=== PATIENT | female | born 1980 | race Caucasian/White ===

== ENCOUNTER 2022-03-09 21:35 | Emergency (ER) | payer SELFPAY ==
[2022-03-09 22:44] LABS: HEMOGLOBIN 14.5 gm/dl (12.3-15.3); RED BLOOD COUNT 4.72 M/UL (4.00-5.10); WHITE BLOOD COUNT 9.2 K/UL (4.5-11.0)
[2022-03-09 23:06] LABS: BUN/CREATININE RATIO 8 (0-10)
[2022-03-10] MEDS ORDERED: PROAIR HFA8.5 GM INH (01:03)
[2022-03-10] MEDS ORDERED: MUCINEX DM ER1 EACH PO (01:03)
== END 2022-03-10 01:15 | disposition home or self-care (01) ==
LOC: ER1 21:35
PROVIDERS: Nurse Practitioner
DX: J20.9 Acute bronchitis, unspecified (principal); E87.6 Hypokalemia; F17.200 Nicotine dependence, unspecified, uncomplicated; Z20.822 Contact with and (suspected) exposure to COVID-19
CPT/HCPCS: 0240U; 71045; 80053; 82550; 82553; 83735; 84100; 84484; 85025; 93005; 99285